=== PATIENT | female | born 1935 | race Caucasian/White ===

== ENCOUNTER 2021-09-11 15:38 | Inpatient (IN) | payer OTHER, MEDICAID, SELFPAY ==
[~2021-09-11] VITALS: Ht 152.4 cm; Wt 55.8 kg
[2021-09-11 15:38] VITALS: BP_SYST 139
--- NOTE | 2021-09-11 17:00 | NUR ---
Placed in room 8 . Placed on aerial photograph interpreter, blood pressure machine and pulse oximeter. To gown for exam. Side rails up.
--- NOTE | 2021-09-11 17:05 | NUR ---
Pt bib EMS from [facility] with c/o generalized weakness and a fall. Fell on left buttock area, pt is sore to touch area. V/S stable, no acute distress noted.
[2021-09-11] MEDS ORDERED: NACL 0.9% 1,000 ML IV ONE (17:30)
--- NOTE | 2021-09-11 17:45 | NUR ---
ER Dr. Benavides at bedside examining patient.
--- NOTE | 2021-09-11 18:00 | NUR ---
# 20 gauge angiocath placed to LAC. Use of asceptic technique. Opsite placed over site. Blood return noted. Blood for lab drawn from site. Flushed with 10 cc of normal saline. No evidence of infiltration noted. Patient tolerated well.
[2021-09-11 18:29] LABS: BASOPHILS % (AUTO) 0.4 % (0.0-2.0); EOSINOPHILS # (AUTO) 0.2 K/uL (0.0-0.4); EOSINOPHILS % (AUTO) 2.6 % (0.0-4.0); HEMATOCRIT 28.1 % (36-48); HEMOGLOBIN 9.4 g/dL (12.0-16.0); LYMPHOCYTES # (AUTO) 0.8 K/uL (1.0-5.5); LYMPHOCYTES % (AUTO) 8.9 % (20.5-51.5); MEAN CORPUSCULAR HEMOGLOBIN 27 pg (27-31); MEAN CORPUSCULAR HGB CONC 33 % (32-36); MEAN CORPUSCULAR VOLUME 82 fL (79.0-98.0); MONOCYTES # (AUTO) 0.9 K/uL (0.0-1.0); MONOCYTES % (AUTO) 9.6 % (1.7-9.3); NEUTROPHILS # (AUTO) 6.9 K/uL (1.8-7.7); NEUTROPHILS % (AUTO) 78.5 % (40.0-70.0); PLATELET COUNT (AUTO) 211 K/uL (130-430); RED BLOOD CELL COUNT(AUTO) 3.42 MIL/uL (4.2-6.2); RED CELL DISTRIBUTION WIDTH 16.9 % (9.0-15.0); WHITE BLOOD COUNT (AUTO) 8.8 K/uL (4.8-10.8)
[2021-09-11 18:32] LABS: ANION GAP 7 (5-15); CALCIUM 8.5 mg/dL (8.4-11.0); CHLORIDE 101 mmol/L (98-107); CREATININE 1.99 mg/dL (0.55-1.30); GLUCOSE 108 mg/dL (70-99); SODIUM SERUM 133 mmol/L (136-145); UREA NITROGEN, BLOOD 73 mg/dL (8-21)
[2021-09-11 18:35] LABS: PROTHROMBIN TIME 10.2 SECS (9.5-12.5)
[2021-09-11 18:39] LABS: ALANINE AMINOTRANSFERASE 84 U/L (12-78); ALBUMIN 2.6 g/dL (3.4-4.8); ASPARTATE AMINOTRANSFERASE 85 U/L (10-37); TOTAL BILIRUBIN 0.6 mg/dL (0.0-1.0)
--- NOTE | 2021-09-11 19:15 | NUR ---
Care of patient endorsed to MADHU Kay. Pt currently resting in bed, no acute distress noted.
--- NOTE | 2021-09-11 19:17 | NUR ---
ASUMED CARE OF PT FROM LEANN LEUNG
[2021-09-11 19:36] LABS: BILIRUBIN,URINE NEGATIVE (NEGATIVE); BLOOD, URINE 3+ (NEGATIVE); CLARITY/URINE HAZY (CLEAR); COLOR,URINE YELLOW (YELLOW); GLUCOSE,URINE NEGATIVE (NEGATIVE); KETONES,URINE NEGATIVE (NEGATIVE); LEUKOCYTE ESTERASE ,URINE 1+ (NEGATIVE); NITRITE, URINE NEGATIVE (NEGATIVE); PROTEIN URINE TRACE (NEGATIVE)
[2021-09-11] MEDS ORDERED: cefTRIAXone 1 GM IVPB PREMIX 50 ML IV ONE (19:45)
[2021-09-11 19:55] LABS: BACTERIA,URINE MANY /HPF (None Seen); MUCUS,URINE 2+ /LPF (None Seen); RBC,URINE 80-100 /HPF (0-3)
--- NOTE | 2021-09-11 21:06 | NUR ---
PT IS FULLCODE
[2021-09-11] MEDS ORDERED: MELA5TAB12 PO (21:16)
[2021-09-11] MEDS ORDERED: CYM30 PO (21:16)
[2021-09-11] MEDS ORDERED: TRAM100T34 PO (21:16)
[2021-09-11] MEDS ORDERED: PANT20TA2 PO (21:16)
[2021-09-11] MEDS ORDERED: DOCU-144 PO (21:16)
[2021-09-11] MEDS ORDERED: NEU300 PO (21:16)
[2021-09-11] MEDS ORDERED: METO-540 PO (21:16)
[2021-09-11] MEDS ORDERED: ACET1TAB23 PO (21:16)
[2021-09-11] MEDS ORDERED: TELM80TA2 PO (21:16)
[2021-09-11] MEDS ORDERED: TICA90TA PO (21:16)
[2021-09-11] MEDS ORDERED: LIP80 PO (21:16)
[2021-09-11] MEDS ORDERED: POTA8TAB4 PO (21:16)
[2021-09-11] MEDS ORDERED: FURO-150 PO (21:16)
[2021-09-11] MEDS ORDERED: MELO5CAP2 PO (21:16)
--- NOTE | 2021-09-11 21:16 | NUR ---
Medication reconciliation completed with information provided by FACILITY. Any prior medication reconciliation on file was reviewed and corrected.
--- NOTE | 2021-09-11 21:45 | NUR ---
RAFAEL ha at bedside examining patient.
[2021-09-11] MEDS ORDERED: PANTOPRAZOLE SODIUM 40 MG/VIAL (PROTONIX) IVP ONE (22:00)
[2021-09-11] MEDS ORDERED: ONDANSETRON HCL 4 MG/2 ML VIAL IVP PRN (22:00)
[2021-09-11] MEDS ORDERED: ACETAMINOPHEN 325 MG TABLET PO PRN (22:00)
--- NOTE | 2021-09-11 22:11 | NUR ---
Patient transported to radiology via wheelchair, accompanied by tech.
[2021-09-11] MEDS ORDERED: NALOXONE HCL 0.4 MG/ML AMP (NARCAN) IVP PRN (22:15)
--- NOTE | 2021-09-11 22:15 | NUR ---
Patient will be admitted to care of dr Hendrix. Admitted to tele unit. Will go to room tbd. Belongings list completed. Complete and up to date summary report printed. SBAR report to be given at bedside with opportunity for questions.
--- NOTE | 2021-09-11 23:29 | NUR ---
[facility]. Licensed nurse present. IV present no signs or symptoms of infiltration.
--- NOTE | 2021-09-11 23:50 | NUR ---
ADMIT NOTE Received pt from ER to the floor with a diagnosis of GENERALIZED WEAKNESS AND HARRIETT. Admission process initiated. patient oriented to pain management, safety and call light-teach back done.
[2021-09-12 00:10] VITALS: BP_SYST 162
--- NOTE | 2021-09-12 00:10 | NUR ---
Initial RN notes Pt AAO, VSS, afebrile. No s/s distress noted. IV L. AC 20G clear and patent. Pt incontinent of urine. Pericare done. Generalized bruising noted. Call light within reach. Bed low, locked, siderails up x3, alarm on. Fall precaution in place. To monitor.
--- NOTE | 2021-09-12 00:54 | NUR ---
Consultation Paged Reason for Consultation: CAD Was consult called: Y Person who was notified: Meredith Consulting Physician: Dr. Castro Ordering Physician: Dr. Robledo
[2021-09-12] MEDS: NACL 0.9% 1,000 ML IV SCH ×3 (01:48→12:38)
--- NOTE | 2021-09-12 04:30 | NUR ---
Rounds/Bedpan Pt tried to get out of bed. Pt placed on a bedpan and voided, pericare provided. Call light within reach. Bed low, locked, siderails up x3, alarm on. To monitor.
[2021-09-12 04:32] VITALS: BP_SYST 138
--- NOTE | 2021-09-12 05:01 | NUR ---
Consultation Paged Reason for Consultation: weakness Was consult called: Y Person who was notified: Dr. Trevizo text message Consulting Physician: Gurwinder Glover Ordering Physician: Dr. Robledo
--- NOTE | 2021-09-12 05:20 | NUR ---
Closing notes Pt awake, confused and thinks she is at home, asking for her clothes. Re oriented pt to surrounding as needed. No s/s distress noted. IVF infusing L.AC 20 wrapped in kerlix. Call light within reach. Bed low, locked, siderail upx4, alarm on. Fall precaution in place. To endorse to AM nurse.
[2021-09-12 07:04] LABS: BASOPHILS % (AUTO) 0.5 % (0.0-2.0); EOSINOPHILS # (AUTO) 0.2 K/uL (0.0-0.4); HEMATOCRIT 28.5 % (36-48); HEMOGLOBIN 9.5 g/dL (12.0-16.0); LYMPHOCYTES # (AUTO) 0.6 K/uL (1.0-5.5); LYMPHOCYTES % (AUTO) 6.4 % (20.5-51.5); MEAN CORPUSCULAR HEMOGLOBIN 28 pg (27-31); MEAN CORPUSCULAR HGB CONC 33 % (32-36); MEAN CORPUSCULAR VOLUME 83 fL (79.0-98.0); MONOCYTES # (AUTO) 0.6 K/uL (0.0-1.0); MONOCYTES % (AUTO) 6.6 % (1.7-9.3); NEUTROPHILS # (AUTO) 7.3 K/uL (1.8-7.7); NEUTROPHILS % (AUTO) 84.5 % (40.0-70.0); PLATELET COUNT (AUTO) 219 K/uL (130-430); RED BLOOD CELL COUNT(AUTO) 3.41 MIL/uL (4.2-6.2); RED CELL DISTRIBUTION WIDTH 16.9 % (9.0-15.0); WHITE BLOOD COUNT (AUTO) 8.6 K/uL (4.8-10.8)
--- NOTE | 2021-09-12 07:36 | NUR ---
rn opening note reports were endorses by night nurse. patient is awake and alert laying in bed no sign of any distress, breathing is equal and non labored. patient has all safety precautions in place. call light is with her educated to use call light for assistance. no other needs at this time.
[2021-09-12 07:51] LABS: ALANINE AMINOTRANSFERASE 83 U/L (12-78); ALBUMIN 2.6 g/dL (3.4-4.8); ANION GAP 12 (5-15); ASPARTATE AMINOTRANSFERASE 84 U/L (10-37); CALCIUM 8.7 mg/dL (8.4-11.0); CHLORIDE 106 mmol/L (98-107); CREATININE 1.58 mg/dL (0.55-1.30); FREE T4 (FREE THYROXINE) 1.4 ng/dl (0.8-1.5); GLUCOSE 95 mg/dL (70-99); PHOSPHORUS 3.5 mg/dL (2.7-4.5); POTASSIUM 4.7 mmol/L (3.5-5.1); SODIUM SERUM 138 mmol/L (136-145); THYROID STIMULATING HORMONE 0.18 uIu/mL (0.36-3.74); TOTAL BILIRUBIN 0.5 mg/dL (0.0-1.0); UREA NITROGEN, BLOOD 58 mg/dL (8-21)
[2021-09-12 08:00] VITALS: BP_SYST 149
[2021-09-12] MEDS: DULoxetine HCL 30 MG CAPSULE.DR (CYMBALTA) PO SCH ×2 (08:30→08:45)
[2021-09-12] MEDS: DOCUSATE SODIUM 100 MG CAPSULE PO SCH ×3 (08:30→21:11)
[2021-09-12] MEDS: GABAPENTIN 100 MG CAPSULE PO SCH ×4 (08:30→21:11)
[2021-09-12] MEDS: METOPROLOL SUCCINATE 25 MG TAB.SR.24H (TOPROL XL) PO SCH ×2 (08:30→08:45)
[2021-09-12] MEDS: TICAGRELOR 60 MG TABLET PO SCH ×3 (08:38→21:11)
--- NOTE | 2021-09-12 08:47 | NUR ---
rn rounding patient is refusing medication at this time. at bedside. md called patient's family no answer all safety precautions in place. educated communications officer light, call light is with her. no other needs at this time.
[2021-09-12 08:57] LABS: TOTAL IRON BIND. CAPACITY 133 ug/dL (250-450)
[2021-09-12] MEDS ORDERED: NON-FORMULARY MEDICATION (Pantoprazole (Protonix) 40 MG) PO SCH (09:00)
[2021-09-12] MEDS ORDERED: PANTOPRAZOLE SODIUM 40 MG/VIAL (PROTONIX) IVP SCH (09:00)
--- NOTE | 2021-09-12 10:34 | NUR ---
Nutrition Update : Luigi Scale: 16 noted Pt admitted for Generalized weakness and Acute kidney injury. Diet: Mechanical soft BMI: 24.0 kg/m2 RD to follow per nutrition care standards.
--- NOTE | 2021-09-12 12:00 | NUR ---
RN SHADE SPOKE WITH PATIENTS GRAND DAUGHTER WHO IS CONSERVATOR OVER PATIENT. SHE SPOKE WITH PATIENT AND CONVINCED HER TO EAT. PATIENT HAD A LITTLE BIT OF LUNCH. PATIENT SHOWS NO SIGNS OF ANY DISTRESS, BREATHING IS EQUAL AND NON LABORED. ALL SAFETY PRECAUTIONS IN PLACE. CALL LIGHT IS WITH HER EDUCATED TO USE FOR ASSISTANCE.
[2021-09-12 12:37] VITALS: BP_SYST 148
[2021-09-12] MEDS ORDERED: cloNIDine HCL 0.1 MG TABLET PO PRN (14:00)
--- NOTE | 2021-09-12 14:52 | NUR ---
INCONTINENCE CARE PATIENT PROVIDED WITH INCONTINENCE CARE. PATIENT BROUGHT BACK FROM RADIOLOGY ALL BEDDING AND LINEN CHANGED. PATIENT HAS NO COMPLAINTS AT THIS TIME. ALL SAFETY PRECAUTIONS IN PLACE. CALL LIGHT IS WITH HER EDUCATED TO USE FOR ASSISTANCE.
[2021-09-12 17:15] VITALS: BP_SYST 147
[2021-09-12] MEDS: MEGESTROL ACETATE 400 MG/10 ML UDC PO SCH (18:54)
[2021-09-12] MEDS: cefTRIAXone 1 GM in D5W 50 ML IV SCH (18:57)
--- NOTE | 2021-09-12 19:04 | NUR ---
RN CLOSING NOTE PATIENT IS AWAKE AND ALERT SITTING UP IN BED. PATIENTS SCHEDULED MEDICATION GIVEN PER ORDER. PATIENT SHOWS NO SIGNS OF ANY DISTRESS,BREATHING IS EQUAL AND NON LABORED. ALL SAFETY PRECAUTIONS IN PLACE. CALL LIGHT IS WITH HER, EDUCATED TO USE CALL LIGHT FOR ASSISTANCE. NO OTHER NEEDS AT THIS TIME.
[2021-09-12 21:01] VITALS: BP_SYST 138
[2021-09-12] MEDS: MELATONIN 5 MG TABLET PO SCH (21:11)
--- NOTE | 2021-09-13 | NUR ---
TRANSFER OF CARE RECEIVED REPORT FROM MECHELLE LEUNG. PATIENT RESTING, NO RESPIRATORY DISTRESS NOTED. CALL LIGHT WITHIN REACH, BED ALARM ON, BED AT LOWEST POSITION, BED LOCKED. FALL, RESPIRATORY, ASPIRATION, ISOLATION AND SAFETY PRECAUTIONS IN PLACE. WILL CONTINUE TO MONITOR.
[2021-09-13] MEDS: NACL 0.9% 1,000 ML IV SCH ×4 (00:09→23:29)
[2021-09-13 00:50] VITALS: BP_SYST 158
--- NOTE | 2021-09-13 02:10 | NUR ---
PATIENT RESTING, NO SIGNS OF DISTRESS NOTED. WILL CONTINUE TO MONITOR.
--- NOTE | 2021-09-13 04:30 | NUR ---
PATIENT PROVIDED WARM BLANKETS, NO OTHER NEEDS AT THIS TIME. WILL CONTINUE TO MONITOR.
--- NOTE | 2021-09-13 06:30 | NUR ---
CLOSING NOTES PATIENT RESTING, NO DISTRESS NOTED. CALL LIGHT WITHIN REACH, BED ALARM ON, BED AT LOWEST POSITION, BED LOCKED. FALL, RESPIRATORY, ASPIRATION, ISOLATION AND SAFETY PRECAUTIONS IN PLACE THROUGHOUT SHIFT. ALL NEEDS MET THROUGHOUT SHIFT. WILL ENDORSE CARE TO ONCOMING SHIFT.
[2021-09-13 06:43] LABS: BASOPHILS % (AUTO) 0.7 % (0.0-2.0); EOSINOPHILS # (AUTO) 0.2 K/uL (0.0-0.4); EOSINOPHILS % (AUTO) 3.4 % (0.0-4.0); HEMOGLOBIN 8.6 g/dL (12.0-16.0); LYMPHOCYTES # (AUTO) 0.8 K/uL (1.0-5.5); LYMPHOCYTES % (AUTO) 12.8 % (20.5-51.5); MEAN CORPUSCULAR HEMOGLOBIN 27 pg (27-31); MEAN CORPUSCULAR HGB CONC 33 % (32-36); MEAN CORPUSCULAR VOLUME 83 fL (79.0-98.0); MONOCYTES # (AUTO) 0.5 K/uL (0.0-1.0); MONOCYTES % (AUTO) 8.1 % (1.7-9.3); NEUTROPHILS # (AUTO) 4.9 K/uL (1.8-7.7); PLATELET COUNT (AUTO) 211 K/uL (130-430); RED BLOOD CELL COUNT(AUTO) 3.14 MIL/uL (4.2-6.2); RED CELL DISTRIBUTION WIDTH 16.8 % (9.0-15.0); WHITE BLOOD COUNT (AUTO) 6.6 K/uL (4.8-10.8)
[2021-09-13 07:50] LABS: ALANINE AMINOTRANSFERASE 72 U/L (12-78); ALBUMIN 2.1 g/dL (3.4-4.8); ANION GAP 11 (5-15); ASPARTATE AMINOTRANSFERASE 56 U/L (10-37); CALCIUM 8.4 mg/dL (8.4-11.0); CHLORIDE 112 mmol/L (98-107); CREATININE 1.29 mg/dL (0.55-1.30); GLUCOSE 111 mg/dL (70-99); POTASSIUM 4.2 mmol/L (3.5-5.1); SODIUM SERUM 143 mmol/L (136-145); TOTAL BILIRUBIN 0.3 mg/dL (0.0-1.0); UREA NITROGEN, BLOOD 43 mg/dL (8-21)
[2021-09-13 08:00] VITALS: BP_SYST 142
--- NOTE | 2021-09-13 08:09 | NUR ---
Received report from test development engineer nurse. Pt resting in bed with no c/o. A&Ox3. Skin is intact. No s/s of distress. L IV intact and patent. Pupils are PERRLA. Will continue to monitor.
[2021-09-13] MEDS: DOCUSATE SODIUM 100 MG CAPSULE PO SCH ×2 (08:57→20:56)
[2021-09-13] MEDS: METOPROLOL SUCCINATE 25 MG TAB.SR.24H (TOPROL XL) PO SCH (08:58)
[2021-09-13] MEDS: DULoxetine HCL 30 MG CAPSULE.DR (CYMBALTA) PO SCH (08:58)
[2021-09-13] MEDS: GABAPENTIN 100 MG CAPSULE PO SCH ×3 (08:58→20:56)
[2021-09-13] MEDS: CLOPIDOGREL BISULFATE 75 MG TABLET PO SCH (09:30)
--- NOTE | 2021-09-13 10:54 | NUR ---
Assessed pt and pt has no c/o. A&Ox3. Skin intact. Family members at bedside. Scheduled meds have been given. No s/s of distress. Warm blankets given. Bed in lowest position. Call light within reach. VSS.
[2021-09-13] MEDS: SOD FERRIC GLUC COMPLEX/SUC 125 MG in NS 100 ML IV SCH (12:20)
[2021-09-13 12:32] VITALS: BP_SYST 148
[2021-09-13] MEDS ORDERED: CLOP75TA32 PO (12:33)
--- NOTE | 2021-09-13 15:13 | NUR ---
Discharge Planning: DAYANNA faxed pt referral to [facility] [phone] P [phone] this is the home health used at facility. [facility] to follow up. Addendum: 09/13/21 at 1558 by Yessica Farmer DP DAYANNA followed up with pt referral to [facility] [phone] P [phone] care will resume, [facility] made CM aware. Disposition
--- NOTE | 2021-09-13 16:26 | NUR ---
CM: per dr. Robledo, plans to dc pt home with home health tomorrow. The discharge is pending Urine culture and sensitivity result. The home health has been arranged. MADHU trent.
[2021-09-13 16:58] VITALS: BP_SYST 145
[2021-09-13] MEDS ORDERED: EPOETIN ALFA-EPBX 4,000 UNITS/ML VIAL SUBCUT SCH (17:00)
--- NOTE | 2021-09-13 17:08 | NUR ---
Dietitian Recommendations * Continue mechanical soft diet w/ Ensure High Protein TID (ONS provides 480 kcal/day, 48 gm protein/day) AZAEL, RD Please refer to Nutrition Assessment for details. Addendum: 09/13/21 at [address] Amended: Links added.
--- NOTE | 2021-09-13 17:39 | NUR ---
Family at bedside. Made family and pt aware that her discharge is in process and that the goal for her to be discharged is tomorrow. Pt has no c/o. A&Ox4. Pt has clean linen and warm blankets. Bed in lowest positions. Call light within reach. All questions and concerns addressed at this time.
[2021-09-13] MEDS: MEGESTROL ACETATE 400 MG/10 ML UDC PO SCH (18:16)
[2021-09-13] MEDS: cefTRIAXone 1 GM in D5W 50 ML IV SCH (18:17)
[2021-09-13] MEDS: MELATONIN 5 MG TABLET PO SCH (20:56)
[2021-09-13] MEDS: ACETAMINOPHEN/CODEINE 300 MG-30 MG TABLET PO PRN (20:57)
[2021-09-13 21:02] VITALS: BP_SYST 150
[2021-09-14 00:30] VITALS: BP_SYST 138
[2021-09-14] MEDS: ACETAMINOPHEN/CODEINE 300 MG-30 MG TABLET PO PRN (03:37)
[2021-09-14 06:57] LABS: BASOPHILS % (AUTO) 0.7 % (0.0-2.0); EOSINOPHILS # (AUTO) 0.2 K/uL (0.0-0.4); EOSINOPHILS % (AUTO) 3.5 % (0.0-4.0); HEMATOCRIT 22.6 % (36-48); HEMOGLOBIN 7.3 g/dL (12.0-16.0); LYMPHOCYTES # (AUTO) 0.8 K/uL (1.0-5.5); LYMPHOCYTES % (AUTO) 14.4 % (20.5-51.5); MEAN CORPUSCULAR HEMOGLOBIN 27 pg (27-31); MEAN CORPUSCULAR HGB CONC 32 % (32-36); MEAN CORPUSCULAR VOLUME 84 fL (79.0-98.0); MONOCYTES # (AUTO) 0.5 K/uL (0.0-1.0); MONOCYTES % (AUTO) 9.7 % (1.7-9.3); NEUTROPHILS % (AUTO) 71.7 % (40.0-70.0); PLATELET COUNT (AUTO) 196 K/uL (130-430); RED BLOOD CELL COUNT(AUTO) 2.68 MIL/uL (4.2-6.2); WHITE BLOOD COUNT (AUTO) 5.5 K/uL (4.8-10.8)
--- NOTE | 2021-09-14 07:31 | NUR ---
Report given to oncoming RN ozzie, pt is comfortably in bed, pt was in continent of bowel ad bladder during the night and had one episode of diarrhea, pt was confused throughout the night, became agitated and was requesting for her son, was reoriented using tester compressed gases, and given pain meds for c/o pain i her abdomen. VS stable throughout the night, condition remains the same.
[2021-09-14 07:57] LABS: ALANINE AMINOTRANSFERASE 58 U/L (12-78); ALBUMIN 1.9 g/dL (3.4-4.8); ANION GAP 12 (5-15); ASPARTATE AMINOTRANSFERASE 40 U/L (10-37); CALCIUM 8.5 mg/dL (8.4-11.0); CHLORIDE 114 mmol/L (98-107); CREATININE 1.19 mg/dL (0.55-1.30); GLUCOSE 97 mg/dL (70-99); POTASSIUM 4.3 mmol/L (3.5-5.1); SODIUM SERUM 145 mmol/L (136-145); UREA NITROGEN, BLOOD 36 mg/dL (8-21)
--- NOTE | 2021-09-14 08:00 | NUR ---
OPENING NOTE AWAKE, ALERT TO NAME AND PLACE ONLY. NO SHORTNESS OF BREATH ON ROOM AIR. DENIES ANY PAIN. IV FLUID INFUSING WELL. PLAN OF CARE EXPLAINED TO PATIENT. SAFETY CHECKS DONE. CALL LIGHT WITHIN REACH. WILL MONITOR.
[2021-09-14 08:19] VITALS: BP_SYST 115
[2021-09-14 08:23] LABS: TOTAL BILIRUBIN 0.2 mg/dL (0.0-1.0)
[2021-09-14] MEDS: NACL 0.9% 1,000 ML IV SCH (08:39)
[2021-09-14] MEDS: GABAPENTIN 100 MG CAPSULE PO SCH ×2 (08:40→15:23)
[2021-09-14] MEDS: DOCUSATE SODIUM 100 MG CAPSULE PO SCH (08:40)
[2021-09-14] MEDS: DULoxetine HCL 30 MG CAPSULE.DR (CYMBALTA) PO SCH (08:40)
[2021-09-14] MEDS: CLOPIDOGREL BISULFATE 75 MG TABLET PO SCH (08:41)
[2021-09-14] MEDS: METOPROLOL SUCCINATE 25 MG TAB.SR.24H (TOPROL XL) PO SCH (08:44)
--- NOTE | 2021-09-14 09:30 | NUR ---
IV INFILTRATION IV ON THE LEFT HAND IS INFILTRATED. NO SIGN OF INJURY. ATTEMPTED TO INSERT IV TWICE BUT WAS UNSUCCESSFUL. WILL TRY AGAIN.
--- NOTE | 2021-09-14 11:00 | NUR ---
IV INSERTION ATTEMPTED TO INSERT IV AGAIN BUT WAS UNSUCCESSFUL.
[2021-09-14 11:39] VITALS: BP_SYST 139
--- NOTE | 2021-09-14 13:00 | NUR ---
IV INSERTION GAUGE 24 WAS SUCCESSFULLY INSERTED ON LEFT HAND. FERRLECIT IV STARTED ORDERED.
[2021-09-14] MEDS: SOD FERRIC GLUC COMPLEX/SUC 125 MG in NS 100 ML IV SCH (13:41)
[2021-09-14] MEDS ORDERED: CEPH250C PO (13:59)
[2021-09-14] MEDS ORDERED: LACT1CAP72 PO (14:01)
[2021-09-14 15:57] VITALS: BP_SYST 131
[2021-09-14 16:44] LABS: HEMOGLOBIN 8.4 g/dL (12.0-16.0); RED BLOOD CELL COUNT(AUTO) 3.03 MIL/uL (4.2-6.2)
[2021-09-14 16:52] LABS: HEMATOCRIT 25.1 % (36-48); MEAN CORPUSCULAR HEMOGLOBIN 28 pg (27-31); MEAN CORPUSCULAR HGB CONC 34 % (32-36); MEAN CORPUSCULAR VOLUME 83 fL (79.0-98.0); PLATELET COUNT (AUTO) 215 K/uL (130-430); WHITE BLOOD COUNT (AUTO) 6.7 K/uL (4.8-10.8)
[2021-09-14 17:06] VITALS: BP_SYST 131
[2021-09-14 17:28] LABS: BAND % (MANUAL) 2 % (0-6); BASOPHILS % (MANUAL) 0 % (0-2); EOSINOPHILS % (MANUAL) 3 % (0-7); LYMPHOCYTES % (MANUAL) 17 % (20-46); METAMYELOCYTES % 2 % (0-0); MONOCYTES % (MANUAL) 8 % (0-11)
--- NOTE | 2021-09-14 17:37 | NUR ---
KATHERIN ALBERT CALLED AND INFORMED THEIR TRANSPORTATION SERVICE CANNOT DISABILITY EXAMINER THE PT. INSTEAD DIANELYS, THE STAFF RESPONSIBLE FOR ACCEPTING THE PT IS ARRANGING TRANSPORTION TO DISABILITY EXAMINER PT BETWEEN 2200 TO 2300 [address].
[2021-09-14] MEDS: MEGESTROL ACETATE 400 MG/10 ML UDC PO SCH (18:00)
[2021-09-14] MEDS: cefTRIAXone 1 GM in D5W 50 ML IV SCH (18:30)
--- NOTE | 2021-09-14 18:53 | NUR ---
CLOSING NOTES PATIENT IS TRYING TO GET OUT OF BED. SHE SAID SHE WANTS TO LEAVE NOW. EXPLAINED THAT SANITATION SUPERVISOR TIME WAS MOVED TO 10PM. PATIENT GOT FRUSTRATED. REFUSED TO TAKE HER MEGACE AT THIS TIME. ALL NEEDS MET THROUGHOUT SHIFT. SAFETY CHECKS DONE. CALL LIGHT WITHIN REACH. WILL ENDORSE TO NIGHT NURSE.
--- NOTE | 2021-09-14 20:28 | NUR ---
Patient was received from AM shift. Family was at bedside and aware of patient's discharge status. Family was informed of the pending shrimp picker of approximately 2200. Patient son Иван decided to take mother to the facility him self. Discharge education and packet for the facility was provided to Son and family at bed side and patient was discharged. Patient left facility at 1999.
== END 2021-09-14 18:00 | disposition home health service (06) | DRG 70 ==
LOC: SED 15:38 → STU 21:54
PROVIDERS: ADMIT Internal Medicine; ATTEND Internal Medicine
DX: G93.41 Metabolic encephalopathy (principal); N17.0 Acute kidney failure with tubular necrosis; N39.0 Urinary tract infection, site not specified; E44.0 Moderate protein-calorie malnutrition; E86.0 Dehydration; D63.8 Anemia in other chronic diseases classified elsewhere; E78.5 Hyperlipidemia, unspecified; F03.90 Unspecified dementia, unspecified severity, without behavioral disturbance, psychotic disturbance, mood disturbance, and anxiety; G62.9 Polyneuropathy, unspecified; I35.0 Nonrheumatic aortic (valve) stenosis; B96.20 Unspecified Escherichia coli [E. coli] as the cause of diseases classified elsewhere; I12.9 Hypertensive chronic kidney disease with stage 1 through stage 4 chronic kidney disease, or unspecified chronic kidney disease; N18.9 Chronic kidney disease, unspecified; R26.9 Unspecified abnormalities of gait and mobility; G89.4 Chronic pain syndrome; M19.90 Unspecified osteoarthritis, unspecified site; I48.0 Paroxysmal atrial fibrillation; F32.A Depression, unspecified; Z20.822 Contact with and (suspected) exposure to COVID-19; Z86.73 Personal history of transient ischemic attack (TIA), and cerebral infarction without residual deficits; Z79.899 Other long term (current) drug therapy; Z68.24 Body mass index [BMI] 24.0-24.9, adult
CPT/HCPCS: 36415; 70450-TC; 71045; 72170-TC; 76376; 80053; 81000; 82272; 82607; 82746; 83540; 83550; 83605; 83880; 84100; 84439; 84443; 84484; 85007; 85025; 85027; 85610-TC; 87040-TC; 87081; 87086; 93005; 93306; 95816; 96361; 96365; 97116-GP; 97530-GP; 99285; C9113; G0378; J0696; J2916; J7060; Q5106

== ENCOUNTER 2022-09-15 19:32 | Emergency (ER) | payer OTHER, MEDICAID ==
[~2022-09-15] VITALS: Ht 157.5 cm; Wt 63.5 kg
[~2022-09-15 19:32] MED LIST: ACET1TAB93 PO; CEPH250C PO; CLOP75TA32 PO; CYM30 PO; DOCU-144 PO; LACT1CAP72 PO; LIP80 PO; MELA5TAB12 PO; METO-540 PO; PANT20TA2 PO; TRAM100T34 PO
[2022-09-15 20:05] VITALS: BP_SYST 162
[2022-09-15] MEDS ORDERED: DIPHTH,PERTUSS(ACELL),TET VAC 0.5 ML VIAL (Tdap) I.M. ONE (22:00)
[2022-09-15] MEDS ORDERED: BACITRACIN 1 GM OINT TP ONE (22:00)
[2022-09-16 08:20] VITALS: BP_SYST 165
== END 2022-09-16 08:20 | disposition home or self-care (01) ==
LOC: SED 19:32
DX: S01.01XA Laceration without foreign body of scalp, initial encounter (principal); I11.0 Hypertensive heart disease with heart failure; S09.90XA Unspecified injury of head, initial encounter; I50.9 Heart failure, unspecified; Z79.899 Other long term (current) drug therapy; W18.12XA Fall from or off toilet with subsequent striking against object, initial encounter; Y93.89 Activity, other specified; Y92.89 Other specified places as the place of occurrence of the external cause; Y99.8 Other external cause status
CPT/HCPCS: 70450-TC; 72125-TC; 73030; 76376; 90715; 99285

== ENCOUNTER 2023-09-02 15:43 | Inpatient (IN) | payer OTHER, MEDICAID ==
[~2023-09-02] VITALS: Ht 157.5 cm; Wt 59.0 kg
[2023-09-02 15:57] VITALS: BP_SYST 90; PULSE 59; RESP 15; TEMP 98.2; O2SAT 99
[2023-09-02] MEDS ORDERED: NACL 0.9% 1,000 ML IV ONE ×2 (16:00→17:45)
[2023-09-02] MEDS ORDERED: ACET-2766 PO (16:39)
[2023-09-02] MEDS ORDERED: NEU300 PO (16:39)
[2023-09-02] MEDS ORDERED: LACT10SO6 PO (16:39)
[2023-09-02] MEDS ORDERED: FLO220 INH (16:39)
[2023-09-02] MEDS ORDERED: FURO40TA5 PO (16:39)
[2023-09-02] MEDS ORDERED: LOSA-415 PO (16:39)
[2023-09-02] MEDS ORDERED: TOPI25TA13 PO (16:39)
[2023-09-02] MEDS ORDERED: FLUT50BL INH (16:39)
[2023-09-02] MEDS ORDERED: TYC3 PO (16:39)
[2023-09-02] MEDS ORDERED: LATA7.5D EACH EYE (16:39)
[2023-09-02] MEDS ORDERED: CETI10CA PO (16:39)
[2023-09-02] MEDS ORDERED: MEMA5TAB42 PO (16:39)
[2023-09-02] MEDS ORDERED: MECL-225 PO (16:39)
[2023-09-02] MEDS ORDERED: DICL50GE TP (16:39)
[2023-09-02] MEDS ORDERED: AMLO2.5T50 PO (16:39)
[2023-09-02 16:49] LABS: BASOPHILS # (AUTO) 0.1 K/uL (0.0-0.2); BASOPHILS % (AUTO) 1.3 % (0.0-2.0); EOSINOPHILS # (AUTO) 0.2 K/uL (0.0-0.4); EOSINOPHILS % (AUTO) 3.4 % (0.0-4.0); HEMATOCRIT 35.1 % (36-48); HEMOGLOBIN 11.4 g/dL (12.0-16.0); LYMPHOCYTES # (AUTO) 1.6 K/uL (1.0-5.5); LYMPHOCYTES % (AUTO) 29.3 % (20.5-51.5); MEAN CORPUSCULAR HEMOGLOBIN 28 pg (27-31); MEAN CORPUSCULAR HGB CONC 33 % (32-36); MEAN CORPUSCULAR VOLUME 87 fL (79.0-98.0); MONOCYTES # (AUTO) 0.5 K/uL (0.0-1.0); NEUTROPHILS # (AUTO) 3.1 K/uL (1.8-7.7); PLATELET COUNT (AUTO) 204 K/uL (130-430); RED BLOOD CELL COUNT(AUTO) 4.02 MIL/uL (4.2-6.2); RED CELL DISTRIBUTION WIDTH 15.9 % (9.0-15.0); WHITE BLOOD COUNT (AUTO) 5.5 K/uL (4.8-10.8)
[2023-09-02 17:25] LABS: ANION GAP 11 (5-15); CALCIUM 8.9 mg/dL (8.4-11.0); CARBON DIOXIDE 24 mmol/L (23-29); CHLORIDE 103 mmol/L (98-107); CREATININE 3.54 mg/dL (0.55-1.30); GLUCOSE 109 mg/dL (74-106); POTASSIUM 3.7 mmol/L (3.5-5.1); SODIUM SERUM 138 mmol/L (136-145); UREA NITROGEN, BLOOD 60 mg/dL (8-21)
[2023-09-02 17:37] LABS: ALANINE AMINOTRANSFERASE 25 U/L (12-78); ASPARTATE AMINOTRANSFERASE 31 U/L (10-37); PHOSPHORUS 6.3 mg/dL (2.7-4.5); THYROID STIMULATING HORMONE 0.58 uIu/mL (0.34-4.82); TOTAL BILIRUBIN 0.5 mg/dL (0.0-1.0); TOTAL PROTEIN, SERUM 6.1 g/dL (6.4-8.3)
[2023-09-02 17:42] LABS: BILIRUBIN,URINE 1+ (NEGATIVE); BLOOD, URINE NEGATIVE (NEGATIVE); CLARITY/URINE CLEAR (CLEAR); COLOR,URINE YELLOW (YELLOW); GLUCOSE,URINE NEGATIVE (NEGATIVE); KETONES,URINE TRACE (NEGATIVE); LEUKOCYTE ESTERASE ,URINE TRACE (NEGATIVE); NITRITE, URINE NEGATIVE (NEGATIVE); PH,URINE 5.5 (5.0-8.0); PROTEIN URINE TRACE (NEGATIVE); UROBILINOGEN,URINE 0.2 (0.2-1.0)
[2023-09-02] MEDS ORDERED: cefTRIAXone 1 GM IVPB PREMIX 50 ML IV ONE (17:45)
[2023-09-02 18:04] LABS: BACTERIA,URINE MODERATE /HPF (None Seen)
[2023-09-02] MEDS: D5/0.45 NS 1,000 ML IV SCH (21:35)
[2023-09-02] MEDS ORDERED: MECLIZINE HCL PO SCH (22:15)
[2023-09-02] MEDS ORDERED: DICLOFENAC SODIUM 4 GM TP SCH (22:15)
[2023-09-02] MEDS ORDERED: cefTRIAXone 1 GM IVPB PREMIX 50 ML IV SCH (22:15)
[2023-09-02] MEDS ORDERED: ACETAMINOPHEN 325 MG TABLET PO PRN (22:15)
[2023-09-02] MEDS ORDERED: LORazepam 2 MG/ML VIAL IVP PRN (22:15)
[2023-09-02 22:23] VITALS: O2SAT 96
[2023-09-02] MEDS ORDERED: MECLIZINE HCL 25 MG TABLET (ANITVERT) PO PRN (23:45)
[2023-09-02 23:49] VITALS: BP_SYST 114; PULSE 55; RESP 18; TEMP 97.4
[2023-09-03] VITALS (7 sets, daily range): BP systolic 105–122; PULSE 52–74; RESP 16–20; TEMP 96.6–97.1; O2SAT 96–99
[2023-09-03 05:25] LABS: BASOPHILS % (AUTO) 0.6 % (0.0-2.0); EOSINOPHILS # (AUTO) 0.2 K/uL (0.0-0.4); EOSINOPHILS % (AUTO) 4.1 % (0.0-4.0); HEMATOCRIT 28.2 % (36-48); HEMOGLOBIN 9.3 g/dL (12.0-16.0); LYMPHOCYTES % (AUTO) 21.6 % (20.5-51.5); MEAN CORPUSCULAR HEMOGLOBIN 29 pg (27-31); MEAN CORPUSCULAR HGB CONC 33 % (32-36); MEAN CORPUSCULAR VOLUME 88 fL (79.0-98.0); MONOCYTES # (AUTO) 0.4 K/uL (0.0-1.0); MONOCYTES % (AUTO) 9.1 % (1.7-9.3); NEUTROPHILS % (AUTO) 64.6 % (40.0-70.0); PLATELET COUNT (AUTO) 130 K/uL (130-430); WHITE BLOOD COUNT (AUTO) 4.7 K/uL (4.8-10.8)
[2023-09-03 05:42] LABS: ALANINE AMINOTRANSFERASE 19 U/L (12-78); ALBUMIN 2.4 g/dL (3.4-4.8); ANION GAP 10 (5-15); ASPARTATE AMINOTRANSFERASE 21 U/L (10-37); CALCIUM 8.1 mg/dL (8.4-11.0); CARBON DIOXIDE 23 mmol/L (23-29); CHLORIDE 109 mmol/L (98-107); CREATININE 2.36 mg/dL (0.55-1.30); GLUCOSE 125 mg/dL (74-106); PHOSPHORUS 4.5 mg/dL (2.7-4.5); POTASSIUM 3.1 mmol/L (3.5-5.1); SODIUM SERUM 142 mmol/L (136-145); TOTAL BILIRUBIN 0.2 mg/dL (0.0-1.0); TOTAL PROTEIN, SERUM 5.1 g/dL (6.4-8.3); UREA NITROGEN, BLOOD 49 mg/dL (8-21)
[2023-09-03] MEDS: D5/0.45 NS 1,000 ML IV SCH ×2 (06:20→22:01)
[2023-09-03] MEDS ORDERED: FLUTICASONE PROPIONATE INH SCH (09:00)
[2023-09-03] MEDS ORDERED: NON-FORMULARY MEDICATION (Amlodipine Besylate 1 TAB) PO SCH (09:00)
[2023-09-03] MEDS ORDERED: NON-FORMULARY MEDICATION (Lactulose 30 ML) PO SCH (09:00)
[2023-09-03] MEDS ORDERED: CETIRIZINE HCL PO SCH (09:00)
[2023-09-03] MEDS ORDERED: LOSARTAN POTASSIUM PO SCH (09:00)
[2023-09-03] MEDS ORDERED: FLUTICASONE FUROATE INH SCH (09:00)
[2023-09-03] MEDS: MEMANTINE HCL 5 MG TABLET PO SCH ×2 (09:09→22:02)
[2023-09-03] MEDS: LACTULOSE 20 GM/30 ML UDC PO SCH (09:09)
[2023-09-03] MEDS: LORATADINE 10 MG TABLET PO SCH (09:09)
[2023-09-03] MEDS: PANTOPRAZOLE SODIUM 40 MG TAB PO SCH (09:09)
[2023-09-03] MEDS: DOCUSATE SODIUM 100 MG CAPSULE PO SCH ×2 (09:09→22:03)
[2023-09-03] MEDS: DULoxetine HCL 30 MG CAPSULE.DR (CYMBALTA) PO SCH (09:10)
[2023-09-03] MEDS: TOPIRAMATE 25 MG TABLET(TOPAMAX) PO SCH ×2 (09:10→22:03)
[2023-09-03] MEDS: FUROSEMIDE 40 MG TABLET PO SCH (09:10)
[2023-09-03] MEDS: amLODIPine BESYLATE 5 MG TABLET PO SCH (09:10)
[2023-09-03] MEDS: LOSARTAN POTASSIUM 50 MG TABLET (COZAAR) PO SCH (09:11)
[2023-09-03] MEDS: cefTRIAXone 1 GM IVPB PREMIX 50 ML IV SCH (09:55)
[2023-09-03] MEDS: BUDESONIDE 0.5 MG/2 ML AMPUL.NEB INH SCH (20:50)
[2023-09-03] MEDS ORDERED: NON-FORMULARY MEDICATION (Melatonin 1 TAB) PO SCH (21:00)
[2023-09-03] MEDS: LATANOPROST 2.5 ML DROPS (XALATAN) EACH EYE SCH (21:00)
[2023-09-03] MEDS ORDERED: NON-FORMULARY MEDICATION (Latanoprost/Pf (Latanoprost 0.005% Eye Drop) 1 DROP) EACH EYE SCH (21:00)
[2023-09-03] MEDS: GABAPENTIN 300 MG CAPSULE PO SCH (22:02)
[2023-09-03] MEDS: METOPROLOL SUCCINATE 25 MG TAB.SR.24H (TOPROL XL) PO SCH (22:03)
[2023-09-03] MEDS: ATORVASTATIN 20 MG TABLET PO SCH (22:03)
[2023-09-03] MEDS: MELATONIN 5 MG TABLET PO SCH (22:04)
[2023-09-04] VITALS (9 sets, daily range): BP systolic 105–131; PULSE 60–76; RESP 16–18; TEMP 96–98.7; O2SAT 97–100
[2023-09-04] MEDS: D5/0.45 NS 1,000 ML IV SCH ×3 (02:00→20:57)
[2023-09-04 05:45] LABS: BASOPHILS % (AUTO) 0.4 % (0.0-2.0); EOSINOPHILS # (AUTO) 0.3 K/uL (0.0-0.4); EOSINOPHILS % (AUTO) 6.6 % (0.0-4.0); HEMATOCRIT 31.4 % (36-48); HEMOGLOBIN 10.3 g/dL (12.0-16.0); LYMPHOCYTES # (AUTO) 0.5 K/uL (1.0-5.5); LYMPHOCYTES % (AUTO) 9.5 % (20.5-51.5); MEAN CORPUSCULAR HEMOGLOBIN 29 pg (27-31); MEAN CORPUSCULAR HGB CONC 33 % (32-36); MEAN CORPUSCULAR VOLUME 88 fL (79.0-98.0); MONOCYTES # (AUTO) 0.4 K/uL (0.0-1.0); NEUTROPHILS # (AUTO) 3.6 K/uL (1.8-7.7); NEUTROPHILS % (AUTO) 75.5 % (40.0-70.0); PLATELET COUNT (AUTO) 125 K/uL (130-430); RED BLOOD CELL COUNT(AUTO) 3.58 MIL/uL (4.2-6.2); RED CELL DISTRIBUTION WIDTH 15.3 % (9.0-15.0); WHITE BLOOD COUNT (AUTO) 4.8 K/uL (4.8-10.8)
[2023-09-04 05:53] LABS: ERYTHROCYTE SEDIMENTATION RATE 13 MM/HR (0-20)
[2023-09-04 06:13] LABS: ANION GAP 11 (5-15); CALCIUM 8.7 mg/dL (8.4-11.0); CARBON DIOXIDE 23 mmol/L (23-29); CHLORIDE 107 mmol/L (98-107); CREATININE 1.62 mg/dL (0.55-1.30); GLUCOSE 130 mg/dL (74-106); PHOSPHORUS 3.2 mg/dL (2.7-4.5); POTASSIUM 3.1 mmol/L (3.5-5.1); SODIUM SERUM 141 mmol/L (136-145); UREA NITROGEN, BLOOD 36 mg/dL (8-21)
[2023-09-04] MEDS: BUDESONIDE 0.5 MG/2 ML AMPUL.NEB INH SCH ×2 (07:20→20:31)
[2023-09-04] MEDS: LACTULOSE 20 GM/30 ML UDC PO SCH (08:24)
[2023-09-04] MEDS: DULoxetine HCL 30 MG CAPSULE.DR (CYMBALTA) PO SCH (08:24)
[2023-09-04] MEDS: DOCUSATE SODIUM 100 MG CAPSULE PO SCH ×2 (08:25→20:52)
[2023-09-04] MEDS: FUROSEMIDE 40 MG TABLET PO SCH (08:25)
[2023-09-04] MEDS: MEMANTINE HCL 5 MG TABLET PO SCH ×2 (08:25→20:51)
[2023-09-04] MEDS: amLODIPine BESYLATE 5 MG TABLET PO SCH (08:25)
[2023-09-04] MEDS: LOSARTAN POTASSIUM 50 MG TABLET (COZAAR) PO SCH (08:26)
[2023-09-04] MEDS: LORATADINE 10 MG TABLET PO SCH (08:26)
[2023-09-04] MEDS: TOPIRAMATE 25 MG TABLET(TOPAMAX) PO SCH ×2 (08:26→20:52)
[2023-09-04] MEDS: PANTOPRAZOLE SODIUM 40 MG TAB PO SCH (08:26)
[2023-09-04] MEDS: cefTRIAXone 1 GM IVPB PREMIX 50 ML IV SCH (10:18)
[2023-09-04] MEDS ORDERED: POTASSIUM CHLORIDE 20 MEQ TABLET.ER PO ONE (10:30)
[2023-09-04] MEDS: MELATONIN 5 MG TABLET PO SCH (20:50)
[2023-09-04] MEDS: METOPROLOL SUCCINATE 25 MG TAB.SR.24H (TOPROL XL) PO SCH (20:51)
[2023-09-04] MEDS: GABAPENTIN 300 MG CAPSULE PO SCH (20:51)
[2023-09-04] MEDS: ATORVASTATIN 20 MG TABLET PO SCH (20:51)
[2023-09-04] MEDS: LATANOPROST 2.5 ML DROPS (XALATAN) EACH EYE SCH (20:52)
[2023-09-05] VITALS (9 sets, daily range): BP systolic 104–124; PULSE 54–69; RESP 16–18; TEMP 95.7–98.4; O2SAT 96–99
[2023-09-05 05:52] LABS: ERYTHROCYTE SEDIMENTATION RATE 16 MM/HR (0-20)
[2023-09-05 06:09] LABS: ANION GAP 11 (5-15); CARBON DIOXIDE 21 mmol/L (23-29); CHLORIDE 110 mmol/L (98-107); GLUCOSE 113 mg/dL (74-106); PHOSPHORUS 2.8 mg/dL (2.7-4.5); POTASSIUM 3.2 mmol/L (3.5-5.1); SODIUM SERUM 142 mmol/L (136-145); UREA NITROGEN, BLOOD 28 mg/dL (8-21)
[2023-09-05 06:34] LABS: BASOPHILS % (AUTO) 0.6 % (0.0-2.0); EOSINOPHILS # (AUTO) 0.4 K/uL (0.0-0.4); EOSINOPHILS % (AUTO) 6.6 % (0.0-4.0); HEMATOCRIT 31.1 % (36-48); HEMOGLOBIN 10.2 g/dL (12.0-16.0); LYMPHOCYTES # (AUTO) 0.6 K/uL (1.0-5.5); LYMPHOCYTES % (AUTO) 9.7 % (20.5-51.5); MEAN CORPUSCULAR HEMOGLOBIN 29 pg (27-31); MEAN CORPUSCULAR HGB CONC 33 % (32-36); MEAN CORPUSCULAR VOLUME 89 fL (79.0-98.0); MONOCYTES # (AUTO) 0.5 K/uL (0.0-1.0); MONOCYTES % (AUTO) 9.3 % (1.7-9.3); NEUTROPHILS # (AUTO) 4.2 K/uL (1.8-7.7); NEUTROPHILS % (AUTO) 73.8 % (40.0-70.0); PLATELET COUNT (AUTO) 131 K/uL (130-430); RED BLOOD CELL COUNT(AUTO) 3.52 MIL/uL (4.2-6.2); RED CELL DISTRIBUTION WIDTH 15.8 % (9.0-15.0); WHITE BLOOD COUNT (AUTO) 5.7 K/uL (4.8-10.8)
[2023-09-05] MEDS: BUDESONIDE 0.5 MG/2 ML AMPUL.NEB INH SCH ×2 (07:44→19:38)
[2023-09-05] MEDS: D5/0.45 NS 1,000 ML IV SCH ×2 (08:53→18:54)
[2023-09-05] MEDS: cefTRIAXone 1 GM IVPB PREMIX 50 ML IV SCH (08:55)
[2023-09-05] MEDS: FUROSEMIDE 40 MG TABLET PO SCH (08:56)
[2023-09-05] MEDS: amLODIPine BESYLATE 5 MG TABLET PO SCH (08:56)
[2023-09-05] MEDS: PANTOPRAZOLE SODIUM 40 MG TAB PO SCH (08:57)
[2023-09-05] MEDS: LORATADINE 10 MG TABLET PO SCH (08:57)
[2023-09-05] MEDS: TOPIRAMATE 25 MG TABLET(TOPAMAX) PO SCH ×2 (08:57→20:53)
[2023-09-05] MEDS: MEMANTINE HCL 5 MG TABLET PO SCH ×2 (08:57→20:53)
[2023-09-05] MEDS: DULoxetine HCL 30 MG CAPSULE.DR (CYMBALTA) PO SCH (08:57)
[2023-09-05] MEDS: DOCUSATE SODIUM 100 MG CAPSULE PO SCH ×2 (08:58→21:00)
[2023-09-05] MEDS: LACTULOSE 20 GM/30 ML UDC PO SCH (08:58)
[2023-09-05] MEDS: LOSARTAN POTASSIUM 50 MG TABLET (COZAAR) PO SCH (08:58)
[2023-09-05] MEDS ORDERED: POTASSIUM CHLORIDE 20 MEQ TABLET.ER PO ONE ×2 (17:15→17:30)
[2023-09-05 20:17] LABS: CREATININE,URINE 21.2 MG/DL (30-125)
[2023-09-05] MEDS ORDERED: MELATONIN 5 MG TABLET PO ONE (20:44)
[2023-09-05] MEDS: ATORVASTATIN 20 MG TABLET PO SCH (20:52)
[2023-09-05] MEDS: GABAPENTIN 300 MG CAPSULE PO SCH (20:52)
[2023-09-05] MEDS: LATANOPROST 2.5 ML DROPS (XALATAN) EACH EYE SCH (21:00)
[2023-09-05] MEDS: MELATONIN 5 MG TABLET PO SCH (21:00)
[2023-09-05] MEDS: METOPROLOL SUCCINATE 25 MG TAB.SR.24H (TOPROL XL) PO SCH (21:00)
[2023-09-06 00:44] VITALS: BP_SYST 93; PULSE 69; RESP 18; TEMP 97.8; O2SAT 100
[2023-09-06] MEDS: D5/0.45 NS 1,000 ML IV SCH (05:50)
[2023-09-06 07:30] VITALS: O2SAT 95
[2023-09-06 07:32] LABS: BASOPHILS % (AUTO) 0.9 % (0.0-2.0); EOSINOPHILS # (AUTO) 0.3 K/uL (0.0-0.4); HEMATOCRIT 31.8 % (36-48); HEMOGLOBIN 10.5 g/dL (12.0-16.0); LYMPHOCYTES # (AUTO) 0.5 K/uL (1.0-5.5); LYMPHOCYTES % (AUTO) 12.6 % (20.5-51.5); MEAN CORPUSCULAR HEMOGLOBIN 29 pg (27-31); MEAN CORPUSCULAR HGB CONC 33 % (32-36); MEAN CORPUSCULAR VOLUME 87 fL (79.0-98.0); MONOCYTES # (AUTO) 0.4 K/uL (0.0-1.0); MONOCYTES % (AUTO) 9.2 % (1.7-9.3); NEUTROPHILS # (AUTO) 2.8 K/uL (1.8-7.7); NEUTROPHILS % (AUTO) 69.3 % (40.0-70.0); PLATELET COUNT (AUTO) 125 K/uL (130-430); RED BLOOD CELL COUNT(AUTO) 3.65 MIL/uL (4.2-6.2)
[2023-09-06] MEDS: BUDESONIDE 0.5 MG/2 ML AMPUL.NEB INH SCH ×2 (07:35→19:00)
[2023-09-06 07:48] LABS: ANION GAP 7 (5-15); CALCIUM 8.6 mg/dL (8.4-11.0); CARBON DIOXIDE 24 mmol/L (23-29); CHLORIDE 109 mmol/L (98-107); GLUCOSE 118 mg/dL (74-106); PHOSPHORUS 2.3 mg/dL (2.7-4.5); POTASSIUM 3.8 mmol/L (3.5-5.1); SODIUM SERUM 140 mmol/L (136-145); UREA NITROGEN, BLOOD 20 mg/dL (8-21)
[2023-09-06 08:16] VITALS: BP_SYST 135; PULSE 82; RESP 18; TEMP 96.7; O2SAT 95
[2023-09-06 08:45] VITALS: O2SAT 95
[2023-09-06] MEDS: DOCUSATE SODIUM 100 MG CAPSULE PO SCH (09:00)
[2023-09-06 10:35] VITALS: BP_SYST 135; PULSE 82; O2SAT 95
[2023-09-06] MEDS: amLODIPine BESYLATE 5 MG TABLET PO SCH (10:56)
[2023-09-06 10:58] VITALS: BP_SYST 132; PULSE 88; RESP 18; TEMP 97; O2SAT 95
[2023-09-06] MEDS: LORATADINE 10 MG TABLET PO SCH (11:04)
[2023-09-06] MEDS: PANTOPRAZOLE SODIUM 40 MG TAB PO SCH (11:06)
[2023-09-06] MEDS: MEMANTINE HCL 5 MG TABLET PO SCH (11:06)
[2023-09-06] MEDS: TOPIRAMATE 25 MG TABLET(TOPAMAX) PO SCH (11:07)
[2023-09-06] MEDS: DULoxetine HCL 30 MG CAPSULE.DR (CYMBALTA) PO SCH (11:07)
[2023-09-06] MEDS: LOSARTAN POTASSIUM 50 MG TABLET (COZAAR) PO SCH (11:08)
[2023-09-06] MEDS: cefTRIAXone 1 GM IVPB PREMIX 50 ML IV SCH (11:08)
[2023-09-06] MEDS: FUROSEMIDE 40 MG TABLET PO SCH (11:09)
[2023-09-06] MEDS: LACTULOSE 20 GM/30 ML UDC PO SCH (11:10)
[2023-09-10 11:39] LABS: URINE MAGNESIUM 24 HR 60.8 mg/24 hr (12.0-293.0); URINE URIC ACID, 24 HR 191.3 mg/24 hr
== END 2023-09-06 11:25 | disposition home health service (06) | DRG 640 ==
LOC: SED 15:43 → SMU 19:17
PROVIDERS: ADMIT Preventive Medicine Preventive Medicine/Occupational Environmental Medicine; ATTEND Preventive Medicine Preventive Medicine/Occupational Environmental Medicine
DX: E86.0 Dehydration (principal); N17.0 Acute kidney failure with tubular necrosis; D61.818 Other pancytopenia; E44.0 Moderate protein-calorie malnutrition; N39.0 Urinary tract infection, site not specified; R73.9 Hyperglycemia, unspecified; G47.00 Insomnia, unspecified; E78.5 Hyperlipidemia, unspecified; F03.90 Unspecified dementia, unspecified severity, without behavioral disturbance, psychotic disturbance, mood disturbance, and anxiety; I12.9 Hypertensive chronic kidney disease with stage 1 through stage 4 chronic kidney disease, or unspecified chronic kidney disease; I25.10 Atherosclerotic heart disease of native coronary artery without angina pectoris; I48.91 Unspecified atrial fibrillation; R62.7 Adult failure to thrive; N18.9 Chronic kidney disease, unspecified; N20.0 Calculus of kidney; E88.09 Other disorders of plasma-protein metabolism, not elsewhere classified; E83.39 Other disorders of phosphorus metabolism; E87.5 Hyperkalemia; Z86.73 Personal history of transient ischemic attack (TIA), and cerebral infarction without residual deficits; Z79.899 Other long term (current) drug therapy; Z68.23 Body mass index [BMI] 23.0-23.9, adult
CPT/HCPCS: 36415; 71045; 76770; 80048; 80053; 81000; 81001; 81015; 82340; 82570; 83605; 83735; 84100; 84105; 84439; 84443; 84560; 85025; 85651-TC; 87040; 87081; 87086; 93005; 94640; 94760; 96361; 96365; 97110-GP; 97116-GP; 97163-GP; 97530-GP; 99291; J0696; J7626